=== PATIENT | female | born 1960 | race Caucasian/White ===

== ENCOUNTER 2018-11-21 13:58 | Emergency (ER) | payer BC ==
[2018-11-21] MEDS ORDERED: traMADol 50 MG Tab PO ONE (14:48)
[2018-11-21] MEDS ORDERED: Levofloxacin/Dextrose 5%-Water 500 MG in Premix Bag 1 BAG IV ONE (14:53)
[2018-11-21] MEDS ORDERED: Sodium Chloride 0.9% 1,000 ML IV SCH (15:00)
[2018-11-21 15:39] LABS: CHLORIDE,CL 100 mEq/L (98-106); SODIUM,NA 136 mEq/L (136-145)
[2018-11-21 16:19] VITALS: BP 104/67; PULSE 103
--- NOTE | 2018-11-21 16:55 | EDM.PDOC ---
ED HPI GENERAL MEDICAL PROBLEM - General Chief Complaint: General Stated Complaint: BLEEDING DURING URINATION/LOWER ABD PAIN Time Seen by Provider: 11/21/18 14:15 Source of Information: Reports: Patient History Limitations: Reports: No Limitations - History of Present Illness INITIAL COMMENTS - FREE TEXT/NARRATIVE: Patient presents to ER with complaints of lower quadrant abdominal pain, dysuria with notable hematuria. Noted burning with urination started about 1000 this am and over the course of the last 3 hours, has had increasing discomfort and more blood. Voiding frequently. No nausea. Does have generalized malaise. Unaware of any fevers. Denies back pain, fevers or headache. Had EGD done yesterday with a monitor placed to evaluate pH of her stomach due to uncontrolled reflux and burning. States due to this, unable to take NSAIDs which she usually takes for discomfort. Onset: Today, Sudden Duration: Hour(s): Location: Reports: Abdomen Quality: Reports: Ache, Sharp Severity: Moderate Associated Symptoms: Denies: Confusion, Chest Pain, Fever/Chills, Headaches, Loss of Appetite, Nausea/Vomiting, Shortness of Breath Groin Pain Score (Numeric/FACES): 5 - Related Data Allergies Allergy/AdvReac Type Severity Reaction Status Date / Time codeine Allergy Unknown Cannot Verified 07/29/16 14:43 Remember Home Meds: Home Meds Albuterol [Ventolin HFA] 1 puff INH BID 05/02/14 [History] Albuterol [Ventolin HFA] 1 puff INH Q8H PRN 05/02/14 [History] Bisacodyl [Dulcolax] 5 mg PO DAILY 05/02/14 [History] Budesonide/Formoterol [Symbicort 160-4.5 Mcg Inhaler] 2 puff INH BID 05/02/14 [ History] Ferrous Sulfate [Iron] 65 mg PO DAILY 05/02/14 [History] Levothyroxine [Synthroid] 100 mcg PO DAILY 05/02/14 [History] Lisinopril 30 mg PO DAILY 05/02/14 [History] MV,Ca,Min/Iron Fum/FA/Vit K [Multi For Her Tablet] 1 tab PO DAILY 05/02/14 [ History] Mometasone Furoate [Nasonex [place]] 1 squirt NASBOTH BID 05/02/14 [History] Omeprazole 20 mg PO DAILY 05/02/14 [History] Potassium Chloride 10 meq PO DAILY 05/02/14 [History] Triamcinolone Acetonide [Triamcinolone Acetonide 0.1% Crm] 1 applic TOP BID PRN 05/02/14 [History] Venlafaxine HCl [Venlafaxine ER] 150 mg PO DAILY 05/02/14 [History] metFORMIN [Glucophage] 1,000 mg PO BID 05/02/14 [History] Colestipol HCl 50 mg PO ASDIRECTED 12/21/15 [History] Insulin Glargine,Hum.Rec.Anlog [Toujeo Solostar] 20 unit SQ DAILY 12/21/15 [ History] Montelukast Sodium [Singulair] 100 mg PO DAILY 12/21/15 [History] Prednisone [IJD: Prednisone] 3 mg PO DAILY 12/21/15 [History] Past Medical History HEENT History: Reports: Allergic Rhinitis Cardiovascular History: Reports: Hypertension Respiratory History: Reports: Asthma Gastrointestinal History: Reports: GERD Endocrine/Metabolic History: Reports: Diabetes, Type II, Hypothyroidism Oncologic (Cancer) History: Reports: Breast - Infectious Disease History Infectious Disease History: Reports: None - Past Surgical History HEENT Surgical History: Reports: LASIK GI Surgical History: Reports: Cholecystectomy Female Surgical History: Reports: Breast Biopsy, D&C, Mastectomy Social & Family History - Family History Family Medical History: Noncontributory - Tobacco Use Smoking Status *Q: Never Smoker Second Hand Smoke Exposure: No ED ROS GENERAL - Review of Systems Review Of Systems: See Below Constitutional: Reports: Malaise. Denies: Fever, Chills, Weakness, Decreased Appetite HEENT: Reports: No Symptoms Respiratory: Denies: Shortness of Breath, Cough Cardiovascular: Denies: Chest Pain, Edema, Lightheadedness Endocrine: Reports: Fatigue GI/Abdominal: Reports: Abdominal Pain. Denies: Constipation, Diarrhea, Nausea : Reports: Dysuria, Frequency, Hematuria, Urgency Musculoskeletal: Reports: No Symptoms Skin: Reports: No Symptoms Neurological: Reports: No Symptoms Psychiatric: Reports: No Symptoms ED EXAM, GENERAL - Physical Exam Exam: See Below Exam Limited By: No Limitations General Appearance: Alert, WD/WN, No Apparent Distress Ears: Normal External Exam, Normal TMs Nose: Normal Inspection, Normal Mucosa, No Blood Throat/Mouth: Normal Inspection, Normal Oropharynx Head: Normocephalic Neck: Normal Inspection, Supple, Non-Tender Respiratory/Chest: No Respiratory Distress, Lungs Clear, Normal Breath Sounds Cardiovascular: Regular Rate, Rhythm GI/Abdominal: Normal Bowel Sounds, Soft, Tender (lower quadrants/suprapubic area ) Extremities: Normal Inspection, No Pedal Edema Neurological: Alert, Oriented Skin Exam: Warm, Dry Course - Vital Signs Last Recorded V/S: Last Vital Signs Temp 97.5 F 11/21/18 15:55 Pulse 103 H 11/21/18 15:55 Resp 18 11/21/18 15:55 BP 104/67 11/21/18 15:55 Pulse Ox 97 11/21/18 15:55 - Orders/Labs/Meds Orders: Active Orders 24 hr Category Date Time Status CULTURE URINE [RM] Stat Lab 11/21/18 14:10 Received Labs: Laboratory Tests 11/21/18 11/21/18 11/21/18 Range/Units 14:10 14:15 14:15 WBC 18.9 H (5.0-10.0) 10^3/uL RBC 5.20 (4.00-5.50) 10^6/uL Hgb 15.1 (12.0-16.0) g/dL Hct 44.7 (37.0-47.0) % MCV 86.0 (82.0-94.0) fL MCH 29.0 (27.0-32.0) pg MCHC 33.8 (33.0-38.0) g/dL RDW Coeff of Jose 13.7 (11.0-15.0) % Plt Count 354 (150-400) 10^3/uL Neut % (Auto) 84.1 (35-85) % Lymph % (Auto) 9.6 L (10-55) % [place] % (Auto) 4.9 (0-16) % Eos % (Auto) 1.2 (0-5) % Baso % (Auto) 0.2 (0-3) % Neut # (Auto) 15.91 H (1.80-7.00) 10^3/uL Lymph # (Auto) 1.81 (1.00-4.80) 10^3/uL [place] # (Auto) 0.93 H (0.00-0.80) 10^3/uL Eos # (Auto) 0.22 (0.00-0.45) 10^3/uL Baso # (Auto) 0.03 10^3/uL Sodium 136 (136-145) mEq/L Potassium 4.6 (3.5-5.0) mEq/L Chloride 100 (98-106) mEq/L Carbon Dioxide 24 (21-32) mmol/L BUN 12 (7-18) mg/dL Creatinine 0.9 (0.6-1.0) mg/dL Est Cr Clr Drug Dosing TNP Estimated GFR (MDRD) > 60 (>=60) mL/min Glucose 206 H D (75-99) mg/dL Calcium 10.0 (8.4-10.1) mg/dL Total Bilirubin 0.4 (0.0-1.0) mg/dL AST 23 (15-37) U/L ALT 37 (12-78) U/L Alkaline Phosphatase 92 (46-116) U/L C-Reactive Protein < 0.2 L (0.2-0.8) mg/dL Total Protein 7.9 (6.4-8.2) g/dL Albumin 3.9 (3.4-5.0) g/dL Urine Color Red (YELLOW) Urine Appearance Cloudy (CLEAR) Urine pH 8.5 H (4.5-8.0) Ur Specific [place] 1.020 (1.003-1.020) Urine Protein >=300 H (NEGATIVE) mg/dL Urine Glucose (UA) 100 H (NEGATIVE) mg/dL Urine Ketones 40 H (NEGATIVE) mg/dL Urine Occult Blood Large H (NEGATIVE) Urine Nitrite Positive H (NEGATIVE) Urine Bilirubin Negative (NEGATIVE) Urine Urobilinogen 4.0 H (0.2-1.0) EU/dL Ur Leukocyte Esterase Large H (NEGATIVE) Urine RBC Packed H (0-5) /HPF Urine WBC Semi-packed H (0-5) /HPF Ur Squamous Epith Cells Few H (NOT SEEN) /HPF Urine Bacteria Moderate H (NOT SEEN) /HPF Urinalysis Comment Meds: Medications Discontinued Medications Generic Name Dose Route Start Last Admin Trade Name Freq PRN Reason Stop Dose Admin Levofloxacin/Dextrose 500 mg/ 100 mls @ 100 mls/hr 11/21/18 14:53 11/21/18 15 :11 Premix IV 11/21/18 15:52 100 mls/hr ONETIME ONE Administration Sodium Chloride 1,000 mls @ 150 mls/hr 11/21/18 15:00 11/21/18 15:11 Normal Saline IV 150 mls/hr ASDIRECTED JOSE Administration Tramadol HCl 50 mg 11/21/18 14:48 11/21/18 15:11 Ultram PO 11/21/18 14:49 50 mg ONETIME ONE Administration - Re-Assessments/Exams Free Text/Narrative Re-Assessment/Exam: 11/21/18 WBC high 18.9, CRP negative. Electrolytes, BUN and creatinine normal. Urine is packed with bacteria, leukocytes, blood. IV started. Given first dose of IV Levaquin. 1700-Patient feeling better. Was given tramadol for pain. Discharge home, continue on Levaquin PO daily. Departure - Departure Time of Disposition: 16:54 Disposition: Home, Self-Care 01 Condition: Fair Clinical Impression: UTI, Urinary tract infectious disease - Discharge Information *PRESCRIPTION DRUG MONITORING PROGRAM REVIEWED*: No *COPY OF PRESCRIPTION DRUG MONITORING REPORT IN PATIENT JOHNNY: No Referrals: Saroj Madison MD [Primary Care Provider] - Forms: ED Department Discharge Additional Instructions: 1. Push fluids 2. Tylenol for discomfort 3. Levaquin 500 mg daily with food 4. Recheck urine in 14 days after completion of treatment. 5. Follow up with primary care provider for ongoing concerns. - My Orders Last 24 Hours: My Active Orders 11/21/18 14:10 CULTURE URINE [RM] Stat - Assessment/Plan Last 24 Hours: My Active Orders 11/21/18 14:10 CULTURE URINE [RM] Stat
== END 2018-11-21 17:18 | disposition home or self-care (01) ==
LOC: CC.ED 13:58
DX: N39.0 Urinary tract infection, site not specified (principal); I10 Essential (primary) hypertension; K21.9 Gastro-esophageal reflux disease without esophagitis; E11.9 Type 2 diabetes mellitus without complications; E03.9 Hypothyroidism, unspecified; Z88.5 Allergy status to narcotic agent; Z79.899 Other long term (current) drug therapy; Z79.4 Long term (current) use of insulin
CPT/HCPCS: 36415; 80053; 81001; 85025; 86140; 87086; 87088; 87186; 96361; 96365; 99283; A4217; A9270; J1956; J7030

== ENCOUNTER → 2020-01-10 | Day surgery (SDC) | payer BC ==
[~2020-01-10] MED LIST: Ketamine 200 MG/20 ML MDV IV ONE; Lactated Ringers 1,000 ML IV SCH; Ondansetron 4 MG Tab.DIS PO ONE; Phenylephrine 1% 10 MG/ML SDV IV ONE; Propofol 200 MG/20 ML SDV IV ONE; fentaNYL 100 MCG/2 ML SDV IV ONE
[2020-01-10 10:19] VITALS: BP 122/52; PULSE 74
--- NOTE | 2020-01-10 11:22 | OR ---
DATE OF OPERATION: 01/10/2020 PREOPERATIVE DIAGNOSIS: HISTORY OF POLYPS. POSTOPERATIVE DIAGNOSIS: HISTORY OF POLYPS. SURGEON: Saroj Madison MD PROCEDURE: FULL-LENGTH COLONOSCOPY WITH SNARE POLYPECTOMY X4, FORCEPS POLYP REMOVAL X6. ANESTHESIA: MAC. COMPLICATIONS: None. SPECIMEN: Ten separate polyps, see report. FINDINGS: 1. Full-length colonoscopy. 2. Mild brock diverticulosis. 3. Tubular adenomas x6. 4. Villous adenomas x4. RECOMMENDATIONS: Followup colonoscopy in 1 year. INDICATIONS: The patient has a distant history of prior polyps, is overdue for a followup colonoscopy. DESCRIPTION OF PROCEDURE: The patient was prepped and draped, placed in the left lateral decubitus position. A lubricated Olympus colonoscope was inserted and easily advanced to the cecum. We were able to directly visualize the ileocecal valve, palpate and visualize the light in the right lower quadrant. The bowel prep was adequate. Upon withdrawal, the cecal pouch appeared benign. On the backside of the cecal pouch, the patient had 3 separate polyps, 2 were small tubular adenomas, 1 was a large villous lesion. The 2 tubular ones were removed with a forceps. The 3rd one was removed in 2 separate pieces via snare and suctioned into polyp trap. In the mid ascending colon, the patient had a 2nd larger villous lesion also removed with a snare without any complication. Just before the hepatic flexure in the distal ascending colon, the patient had a 5th right-sided polyp removed with a forceps without any complication. Most of the transverse colon appeared benign. Right past the splenic flexure, the patient had 2 polyps, each removed with snare without any difficulty. Both were suctioned into polyp traps without complication. The descending colon otherwise was benign. In the mid sigmoid area around 50 cm, the patient had a cluster of 3 small sessile tubular adenomas, each were removed with a forceps without any difficulty. As per the notes, the patient does have brock diverticular disease, most significant in the sigmoid, but mild throughout. The rectal vault appeared benign. Retroflexion of the scope showed no anal lesions. Air was suctioned, scope removed without complication. JUANA/JADEN /[id number]
== END ==
LOC: CC.SDS 07:45
PROVIDERS: ATTEND Family Medicine
DX: Z12.11 Encounter for screening for malignant neoplasm of colon (principal); D12.0 Benign neoplasm of cecum; D12.2 Benign neoplasm of ascending colon; D12.3 Benign neoplasm of transverse colon; D12.5 Benign neoplasm of sigmoid colon; K57.30 Diverticulosis of large intestine without perforation or abscess without bleeding; K21.9 Gastro-esophageal reflux disease without esophagitis; C50.919 Malignant neoplasm of unspecified site of unspecified female breast; I10 Essential (primary) hypertension; R06.00 Dyspnea, unspecified; E03.9 Hypothyroidism, unspecified; R53.83 Other fatigue; F33.9 Major depressive disorder, recurrent, unspecified; E11.9 Type 2 diabetes mellitus without complications; J45.40 Moderate persistent asthma, uncomplicated; Z88.1 Allergy status to other antibiotic agents; Z88.5 Allergy status to narcotic agent; Z79.899 Other long term (current) drug therapy; Z79.890 Hormone replacement therapy
CPT/HCPCS: 00811; A9270-GY; J2370; J2704; J3010; J7120

== ENCOUNTER → 2021-02-12 | Day surgery (SDC) | payer BC ==
[~2021-02-12] MED LIST changes: -Ketamine 200 MG/20 ML MDV IV ONE; -Ondansetron 4 MG Tab.DIS PO ONE; -Phenylephrine 1% 10 MG/ML SDV IV ONE; -Propofol 200 MG/20 ML SDV IV ONE; +Propofol 200 MG/20 ML SDV ONE; -fentaNYL 100 MCG/2 ML SDV IV ONE
[2021-02-12 08:41] VITALS: BP 108/58; PULSE 83
--- NOTE | 2021-02-12 12:11 | OR ---
DATE OF OPERATION: 02/12/2021 PREOPERATIVE DIAGNOSIS: HISTORY OF POLYPS. POSTOPERATIVE DIAGNOSIS: HISTORY OF POLYPS. SURGEON: Saroj Madison MD PROCEDURE: FULL-LENGTH DIAGNOSTIC COLONOSCOPY. ANESTHESIA: MAC. COMPLICATIONS: None. SPECIMEN: None. FINDINGS: 1. Full-length colonoscopy. 2. Mild pandiverticulosis. 3. No polyp recurrence. RECOMMENDATIONS: Followup colonoscopy in 3 years. INDICATIONS: The patient had a colonoscopy last year with 10 polyps removed. She is in for a 1-year followup. DESCRIPTION OF PROCEDURE: The patient was prepped and draped, placed in the left lateral decubitus position. A lubricated Olympus colonoscope was inserted and easily advanced to the cecum. Direct visualization of the ileocecal valve and appendiceal orifice was accomplished. The bowel prep was adequate. Upon withdrawal of the scope throughout the entire length of the colon, I could find no polyps, masses, ulceration, or bleeding sites. No vascular abnormalities or signs of colitis. Pandiverticulosis was seen, mild throughout. No inflammatory changes. Rectal vault was unremarkable. Retroflexion showed no perianal lesions. Air was suctioned. The scope removed without complication. JUANA/JADEN /[id number]
== END ==
LOC: CC.SDS 06:39
PROVIDERS: ATTEND Family Medicine
DX: Z12.11 Encounter for screening for malignant neoplasm of colon (principal); K57.30 Diverticulosis of large intestine without perforation or abscess without bleeding; K21.9 Gastro-esophageal reflux disease without esophagitis; I10 Essential (primary) hypertension; E03.9 Hypothyroidism, unspecified; E11.9 Type 2 diabetes mellitus without complications; M85.80 Other specified disorders of bone density and structure, unspecified site; F33.9 Major depressive disorder, recurrent, unspecified; E66.9 Obesity, unspecified; Z88.5 Allergy status to narcotic agent; Z88.1 Allergy status to other antibiotic agents; Z79.899 Other long term (current) drug therapy; Z79.4 Long term (current) use of insulin; Z98.890 Other specified postprocedural states; Z79.890 Hormone replacement therapy; J45.909 Unspecified asthma, uncomplicated
CPT/HCPCS: 45378; J2704; J7120; 00812

== ENCOUNTER → 2022-12-08 | Day surgery (SDC) | payer BC ==
[~2022-12-08] MED LIST changes: -Propofol 200 MG/20 ML SDV ONE
[2022-12-08 10:53] VITALS: BP 102/55; PULSE 78
== END ==
LOC: CC.SDS 07:46
PROVIDERS: ATTEND Surgery
DX: G56.03 Carpal tunnel syndrome, bilateral upper limbs (principal); K21.9 Gastro-esophageal reflux disease without esophagitis; E03.9 Hypothyroidism, unspecified; I10 Essential (primary) hypertension; F33.9 Major depressive disorder, recurrent, unspecified; J45.40 Moderate persistent asthma, uncomplicated; M85.80 Other specified disorders of bone density and structure, unspecified site; E11.9 Type 2 diabetes mellitus without complications; Z88.5 Allergy status to narcotic agent; Z88.1 Allergy status to other antibiotic agents; Z79.84 Long term (current) use of oral hypoglycemic drugs; Z79.890 Hormone replacement therapy; Z79.899 Other long term (current) drug therapy; Z79.51 Long term (current) use of inhaled steroids; Z79.85 Long-term (current) use of injectable non-insulin antidiabetic drugs
CPT/HCPCS: J7120